=== PATIENT | male | born 1945 | race African-American/Black ===

== ENCOUNTER 2016-09-18 14:40 | Inpatient (IN) | payer MEDICARE, BC ==
[~2016-09-18] VITALS: Ht 182.9 cm; Wt 97.5 kg
[~2016-09-18 14:40] MED LIST: ALLO300T2 PO; AZOPT OP; BRIM5DRO OP; LATA2.5D2 EACHEYE; METF-516 PO; SIMV40TA5 PO
[2016-09-18] MEDS ORDERED: ASPIRIN 81MG TABLET PO STA (15:03)
[2016-09-18] MEDS ORDERED: SODIUM CHLORIDE 0.9% 500 ML IV ONE (15:03)
[2016-09-18 15:45] LABS: BASOPHILS % 0.3 % (0.0-2.0); EOSINOPHILS % 0.7 % (0.0-5.0); HEMATOCRIT. 35.5 % (42.0-52.0); HEMOGLOBIN. 11.7 g/dL (14.0-18.0); LYMPHOCYTES % 19.2 % (20.0-50.0); MEAN CORPUSCULAR HEMOGLOBIN 29.6 pg (28.0-32.0); MEAN CORPUSCULAR HGB CONC 32.9 g/dL (31.0-37.0); MEAN CORPUSCULAR VOLUME 90.1 fL (80.0-94.0); MEAN PLATELET VOLUME 7.9 fl (7.4-10.4); MONOCYTES % 9.4 % (2.0-8.0); NEUTROPHILS % 70.4 % (40.0-76.0); PLATELET 324 x1000/uL (130-400); RED BLOOD CELL COUNT 3.94 mill/uL (4.7-6.1); RED CELL DISTRIBUTION WIDTH 13.2 % (11.6-14.6); WHITE BLOOD COUNT 6.8 x1000/uL (4.5-11.0)
[2016-09-18 15:51] LABS: ALBUMIN 3.3 g/dL (3.4-5.0); ANION GAP 13; CALCIUM 8.9 mg/dL (8.5-10.1); CARBON DIOXIDE 28 mEq/L (21-32); CHLORIDE 103 mEq/L (98-107); INDEX HEMOLYSI 1 (1-3); INDEX ICTERIC 1 (1-4); INDEX LIPEMIC 1 (1-3); INR 1.1; LIPASE 148 IU/L (73-393); PROTHROMBIN TIME 11.2 sec; UREA NITROGEN BLOOD 11 mg/dL (7-21)
[2016-09-18 15:59] LABS: ALANINE AMINOTRANSFERASE 21 IU/L (13-61); CREATINE KINASE 132 IU/L (39-308); NT PRO B-TYPE NATRIURETIC PEP 50 pg/mL (5-125); TROPONIN I < 0.02 ng/mL (0.00-0.04); eGFR > 60 mL/min (>60)
[2016-09-18 16:04] LABS: THYROID STIMULATING HORMONE 0.92 uIU/mL (0.36-3.74)
[2016-09-18 16:50] LABS: CLARITY URINE CLOUDY (CLEAR); COLOR URINE YELLOW (YELLOW); GLUCOSE URINE NEGATIVE (NEGATIVE); KETONES URINE NEGATIVE (NEGATIVE); LEUKOCYTE ESTERASE URINE 3+ (NEGATIVE); NITRITE URINE POSITIVE (NEGATIVE); OCCULT BLOOD URINE 2+ (NEGATIVE); PROTEIN URINE TRACE (NEGATIVE); SPECIFIC GRAVITY URINE 1.012 (1.005-1.030)
[2016-09-18 17:07] LABS: BACTERIA URINE 2+; SQUAMOUS EPITHELIAL CELL URINE RARE /lpf (RARE/1+)
[2016-09-18 17:10] LABS: RBC URINE 15-25 /hpf (0-2); WBC URINE 50-100 /hpf (0-2)
[2016-09-18] MEDS ORDERED: ONDANSETRON HCL 4MG/2ML VIAL IV PRN (18:30)
[2016-09-18] MEDS ORDERED: MORPHINE SULFATE 4 MG/ML CPJ (NOT FOR IM USE) IV PRN (18:30)
[2016-09-18] MEDS ORDERED: CLONIDINE 0.1MG TABLET PO PRN (18:30)
[2016-09-18 18:40] VITALS: BP 124/76
[2016-09-18] MEDS ORDERED: ATENOLOL 25MG TABLET PO ONE (21:00)
[2016-09-18] MEDS ORDERED: DORZ10DR7 EACHEYE (21:46)
[2016-09-18] MEDS ORDERED: TRIA1TAB5 PO (21:46)
[2016-09-18] MEDS ORDERED: B12 PO (21:46)
[2016-09-18] MEDS ORDERED: POTA10CA42 PO (21:46)
[2016-09-18] MEDS ORDERED: CHOL50003 PO (21:46)
[2016-09-18 23:22] LABS: CREATINE KINASE 119 IU/L (39-308); CREATINE KINASE MB FRACTION 1.1 ng/mL (0.5-3.6); INDEX HEMOLYSI 1 (1-3); TROPONIN I < 0.02 ng/mL (0.00-0.04)
[2016-09-19] VITALS: BP 98/66
[2016-09-19 04:00] VITALS: BP 105/60
[2016-09-19 06:52] LABS: CREATINE KINASE 109 IU/L (39-308); CREATINE KINASE MB FRACTION 1.2 ng/mL (0.5-3.6); HDL CHOLESTEROL 36 mg/dL (40-59); INDEX HEMOLYSI 1 (1-3); INDEX ICTERIC 1 (1-4); INDEX LIPEMIC 1 (1-3); LDL CHOLESTEROL 65 mg/dL (5-100); TRIGLYCERIDE 69 mg/dL (0-150); TROPONIN I < 0.02 ng/mL (0.00-0.04)
[2016-09-19 08:00] VITALS: BP 125/80
[2016-09-19] MEDS: ASPIRIN 81MG TABLET PO SCH (09:26)
[2016-09-19] MEDS: PANTOPRAZOLE SODIUM 40 MG/VIAL IV SCH (09:26)
[2016-09-19] MEDS: AMLODIPINE 10MG TABLET PO SCH (09:26)
[2016-09-19 12:30] VITALS: BP 136/74
[2016-09-19 16:00] VITALS: BP 129/79
[2016-09-19] MEDS ORDERED: LEVOFLOXACIN 500MG PREMIX 100 ML IV SCH (16:00)
[2016-09-20] VITALS: BP 136/82
[2016-09-20 04:00] VITALS: BP 130/71
[2016-09-20 08:00] VITALS: BP 122/76
[2016-09-20] MEDS: PANTOPRAZOLE SODIUM 40 MG/VIAL IV SCH (08:26)
[2016-09-20] MEDS: ASPIRIN 81MG TABLET PO SCH (08:27)
[2016-09-20] MEDS: AMLODIPINE 10MG TABLET PO SCH (08:27)
[2016-09-20 12:00] VITALS: BP 113/69
[2016-09-20 15:06] LABS: BASOPHILS % 0.3 % (0.0-2.0); EOSINOPHILS % 1.4 % (0.0-5.0); HEMATOCRIT. 35.6 % (42.0-52.0); HEMOGLOBIN. 11.8 g/dL (14.0-18.0); LYMPHOCYTES % 19.9 % (20.0-50.0); MEAN CORPUSCULAR HEMOGLOBIN 30.1 pg (28.0-32.0); MEAN CORPUSCULAR HGB CONC 33.1 g/dL (31.0-37.0); MEAN CORPUSCULAR VOLUME 90.7 fL (80.0-94.0); MEAN PLATELET VOLUME 8.2 fl (7.4-10.4); MONOCYTES % 7.9 % (2.0-8.0); NEUTROPHILS % 70.5 % (40.0-76.0); PLATELET 309 x1000/uL (130-400); RED BLOOD CELL COUNT 3.93 mill/uL (4.7-6.1); RED CELL DISTRIBUTION WIDTH 13.4 % (11.6-14.6); WHITE BLOOD COUNT 5.9 x1000/uL (4.5-11.0)
[2016-09-20 16:00] VITALS: BP 103/69
[2016-09-20 16:06] LABS: ANION GAP 13; CALCIUM 8.7 mg/dL (8.5-10.1); CARBON DIOXIDE 27 mEq/L (21-32); CHLORIDE 103 mEq/L (98-107); INDEX HEMOLYSI 1 (1-3); INDEX ICTERIC 1 (1-4); INDEX LIPEMIC 1 (1-3); TROPONIN I < 0.02 ng/mL (0.00-0.04); UREA NITROGEN BLOOD 11 mg/dL (7-21); eGFR > 60 mL/min (>60)
[2016-09-20 16:39] VITALS: BP 130/78
[2016-09-21] MEDS ORDERED: FAMOTIDINE 20MG TABLET PO SCH (09:00)
[2016-09-21] MEDS ORDERED: LEVOFLOXACIN 500MG TABLET PO SCH (11:00)
== END 2016-09-20 17:15 | disposition home or self-care (01) | DRG 206 ==
LOC: ER 17:09 → 5WST 17:10 → ER 17:11
PROVIDERS: ADMIT Hospitalist; ATTEND Hospitalist
DX: M94.0 Chondrocostal junction syndrome [Tietze] (principal); N39.0 Urinary tract infection, site not specified; R13.10 Dysphagia, unspecified; Z79.84 Long term (current) use of oral hypoglycemic drugs; M10.9 Gout, unspecified; I10 Essential (primary) hypertension; E78.5 Hyperlipidemia, unspecified; E78.00 Pure hypercholesterolemia, unspecified; E11.9 Type 2 diabetes mellitus without complications; D64.9 Anemia, unspecified; Z82.49 Family history of ischemic heart disease and other diseases of the circulatory system; Z85.46 Personal history of malignant neoplasm of prostate; Z87.442 Personal history of urinary calculi; Z90.79 Acquired absence of other genital organ(s)
CPT/HCPCS: 36415; 71010; 80048; 80053; 80061; 81001; 82550; 82553; 83690; 83880; 84443; 84484; 85025; 85610; 85730; 87077; 87086; 87186; 92610; 93005; 93306; 99285; C9113; J1956; J7030; J7040

== ENCOUNTER → 2016-09-29 | Day surgery (SDC) | payer MEDICARE ==
[~2016-09-29] VITALS: Ht 182.9 cm; Wt 97.5 kg
[~2016-09-29] MED LIST changes: +ACETAMINOPHEN 325MG TABLET PO PRN; -AZOPT OP; +B12 PO; +CHOL50003 PO; +DORZ10DR7 EACHEYE; +NICARDIPINE 100MCG/ML 10ML VIAL (CATH LAB) IV ONE; +NITROGLYCERIN 50MCG/ML 10ML VIAL (CATH LAB) IV ONE; +ONDANSETRON HCL 4MG TABLET PO SCH; +ONDANSETRON HCL 4MG/2ML VIAL IM ONE; +POTA10CA42 PO; +TRIA1TAB5 PO
[2016-09-29 13:09] VITALS: BP 136/81
== END | disposition home or self-care (01) ==
LOC: CCL 08:09
PROVIDERS: ATTEND Specialist
DX: I25.10 Atherosclerotic heart disease of native coronary artery without angina pectoris (principal); E11.9 Type 2 diabetes mellitus without complications; E78.00 Pure hypercholesterolemia, unspecified; I10 Essential (primary) hypertension; C61 Malignant neoplasm of prostate; D64.9 Anemia, unspecified; M19.90 Unspecified osteoarthritis, unspecified site; I21.3 ST elevation (STEMI) myocardial infarction of unspecified site; E87.6 Hypokalemia
CPT/HCPCS: 93458; C1769; C1893; J1170; J1644; J2250; J3010; J3490; Q0162; Q9967

== ENCOUNTER → 2017-04-20 | Outpatient (CLI) | payer MEDICARE ==
[~2017-04-20] MED LIST changes: -ACETAMINOPHEN 325MG TABLET PO PRN; -NICARDIPINE 100MCG/ML 10ML VIAL (CATH LAB) IV ONE; -NITROGLYCERIN 50MCG/ML 10ML VIAL (CATH LAB) IV ONE; -ONDANSETRON HCL 4MG TABLET PO SCH; -ONDANSETRON HCL 4MG/2ML VIAL IM ONE
== END | disposition home or self-care (01) ==
LOC: RAD 10:48
DX: N28.89 Other specified disorders of kidney and ureter (principal)
CPT/HCPCS: 74000

== ENCOUNTER → 2017-06-03 | Outpatient (CLI) | payer MEDICARE, OTHER | END | disposition home or self-care (01) | LOC: RAD 12:54 | PROVIDERS: ATTEND Urology | DX: M25.78 Osteophyte, vertebrae (principal); R07.89 Other chest pain | CPT/HCPCS: 71010 ==

== ENCOUNTER 2017-06-12 11:41 | Emergency (ER) | payer MEDICARE, OTHER | END 2017-06-12 14:23 | disposition left against medical advice (07) | LOC: ER 13:27 | DX: Z53.21 Procedure and treatment not carried out due to patient leaving prior to being seen by health care provider (principal) ==

== ENCOUNTER 2018-07-11 17:34 | Inpatient (IN) | payer MEDICARE, OTHER ==
[~2018-07-11] VITALS: Ht 182.9 cm; Wt 97.5 kg
[~2018-07-11 17:34] MED LIST changes: -DORZ10DR7 EACHEYE; +DORZ10DR8 EACHEYE
[2018-07-11] MEDS ORDERED: TETANUS, DIPHTHERIA, PERTUSSIS VAC/PF 0.5ML (>7YR OLD) IM ONE (20:30)
[2018-07-11] MEDS ORDERED: HYDROCODONE/ACETAMINOPHEN 5/325MG TABLET PO ONE (21:30)
[2018-07-11] MEDS ORDERED: VANCOMYCIN 750 MG PREMIX 150 ML IV SCH (22:00)
[2018-07-11] MEDS ORDERED: PIPERACILLIN/TAZ 3.375G PREMIX 50 ML IV ONE (22:00)
[2018-07-12] MEDS ORDERED: MORPHINE SULFATE 4 MG/ML CPJ (NOT FOR IM USE) IV STA (00:43)
[2018-07-12] MEDS ORDERED: SODIUM CHLORIDE 0.9% 500 ML IV ONE (00:43)
[2018-07-12] MEDS ORDERED: ONDANSETRON HCL 4MG/2ML INJ IV STA (00:43)
[2018-07-12 12:36] VITALS: BP 133/71
[2018-07-12] MEDS ORDERED: CLONIDINE 0.1MG TABLET PO PRN (14:15)
[2018-07-12] MEDS ORDERED: DOCUSATE SODIUM 100MG CAPSULE PO PRN (14:15)
[2018-07-12] MEDS ORDERED: HYDROMORPHONE HCL/PF 2MG/ML CPJ IV PRN (14:15)
[2018-07-12] MEDS ORDERED: GUAIFENESIN 200MG/10ML SUGAR FREE UDC PO PRN (14:15)
[2018-07-12] MEDS ORDERED: ONDANSETRON HCL 4MG/2ML INJ IV PRN (14:15)
[2018-07-12] MEDS ORDERED: MAGNESIUM/ALUMINUM HYDROXIDE/SIMETHICONE 30ML UDC PO PRN (14:15)
[2018-07-12] MEDS ORDERED: ACETAMINOPHEN 325MG TABLET PO PRN (14:15)
[2018-07-12] MEDS ORDERED: PIPERACILLIN/TAZ 3.375G PREMIX 50 ML IV SCH ×2 (14:30→22:00)
[2018-07-12 16:00] VITALS: BP 136/75
[2018-07-12] MEDS ORDERED: VANCOMYCIN 1500MG in DEXTROSE 5% WATER 250ML IV SCH (16:00)
[2018-07-12 16:23] LABS: BASOPHILS % 0.4 % (0.0-2.0); EOSINOPHILS % 2.6 % (0.0-5.0); HEMATOCRIT. 39.4 % (42.0-52.0); HEMOGLOBIN. 12.9 g/dL (14.0-18.0); LYMPHOCYTES % 23.9 % (20.0-50.0); MEAN CORPUSCULAR HEMOGLOBIN 30.3 pg (28.0-32.0); MEAN CORPUSCULAR VOLUME 92.4 fL (80.0-94.0); NEUTROPHILS % 61.1 % (40.0-76.0); PLATELET 183 x1000/uL (130-400); RED BLOOD CELL COUNT 4.26 mill/uL (4.7-6.1); RED CELL DISTRIBUTION WIDTH 13.5 % (11.6-14.6)
[2018-07-12 16:31] LABS: CHLORIDE 107 mEq/L (98-107)
[2018-07-12] MEDS: HYDROCODONE/ACETAMINOPHEN 5/325MG TABLET PO PRN ×2 (16:33→22:07)
[2018-07-12] MEDS ORDERED: DEXTROSE 50% WATER 50ML SYRINGE IV PRN (19:00)
[2018-07-12 20:00] VITALS: BP 122/70
[2018-07-12] MEDS ORDERED: BLOOD SUGAR DIAGNOSTIC STRIP TEST SCH (21:00)
[2018-07-12] MEDS ORDERED: INSULIN LISPRO 100 UNITS/ML SUBCUT SCH (21:00)
[2018-07-13] VITALS: BP 134/76
[2018-07-13] MEDS ORDERED: SODIUM CHLORIDE 0.9% 1,000 ML IV SCH (06:00)
[2018-07-13] MEDS ORDERED: VANCOMYCIN 1 G PREMIX 200 ML IV SCH (07:00)
== END 2018-07-13 06:39 | disposition left against medical advice (07) | DRG 563 ==
LOC: ER 17:34 → 7WST 07-12 11:03 → ENRESERV 07-12 11:39 → 7WST 07-12 12:52
PROVIDERS: ADMIT Hospitalist; ATTEND Hospitalist
DX: S92.911B Unspecified fracture of right toe(s), initial encounter for open fracture (principal); T79.A21A Traumatic compartment syndrome of right lower extremity, initial encounter; I10 Essential (primary) hypertension; E11.9 Type 2 diabetes mellitus without complications; S80.212A Abrasion, left knee, initial encounter; H40.9 Unspecified glaucoma; E78.00 Pure hypercholesterolemia, unspecified; M10.9 Gout, unspecified; E78.5 Hyperlipidemia, unspecified; S00.31XA Abrasion of nose, initial encounter; W23.0XXA Caught, crushed, jammed, or pinched between moving objects, initial encounter; S00.03XA Contusion of scalp, initial encounter; Z87.442 Personal history of urinary calculi; Y93.89 Activity, other specified; Y92.89 Other specified places as the place of occurrence of the external cause; Y99.8 Other external cause status; Z79.899 Other long term (current) drug therapy; Z79.84 Long term (current) use of oral hypoglycemic drugs
CPT/HCPCS: 36415; 70486; 73630; 80048; 82962; 90715; 93970; 96374; 99285; J1815; J2270; J2405; J2543; J3370; J7030; J7050; J7060

== ENCOUNTER 2021-01-23 19:00 | Emergency (ER) | payer MEDICARE, OTHER ==
[~2021-01-23] VITALS: Ht 182.9 cm; Wt 93.0 kg
[~2021-01-23 19:00] MED LIST changes: -BRIM5DRO OP; +LATA2.5D14 EACHEYE; -LATA2.5D2 EACHEYE; -METF-516 PO; +METF-818 PO; +SIMV-46 PO; -SIMV40TA5 PO
[2021-01-23] MEDS ORDERED: IBUPROFEN 600MG TABLET PO STA (20:50)
[2021-01-23] MEDS ORDERED: IBUP-2029 MT (21:39)
[2021-01-23 21:40] VITALS: BP 131/81
== END 2021-01-23 22:01 | disposition home or self-care (01) ==
LOC: ER 19:00
DX: S09.90XA Unspecified injury of head, initial encounter (principal); I10 Essential (primary) hypertension; E78.00 Pure hypercholesterolemia, unspecified; E11.9 Type 2 diabetes mellitus without complications; Z79.899 Other long term (current) drug therapy; Z98.890 Other specified postprocedural states; W10.9XXA Fall (on) (from) unspecified stairs and steps, initial encounter; Y93.89 Activity, other specified; Y92.89 Other specified places as the place of occurrence of the external cause; Y99.8 Other external cause status
CPT/HCPCS: 99284

== ENCOUNTER 2021-05-20 20:37 | Emergency (ER) | payer MEDICARE, OTHER ==
[~2021-05-20] VITALS: Ht 182.9 cm; Wt 93.0 kg
[~2021-05-20 20:37] MED LIST changes: +IBUP-2029 MT
[2021-05-21 00:29] VITALS: BP 145/76
== END 2021-05-21 00:53 | disposition home or self-care (01) ==
LOC: ER 20:37
DX: S09.8XXA Other specified injuries of head, initial encounter (principal); X58.XXXA Exposure to other specified factors, initial encounter; Y93.89 Activity, other specified; Y92.89 Other specified places as the place of occurrence of the external cause; Y99.8 Other external cause status; E11.9 Type 2 diabetes mellitus without complications; H40.9 Unspecified glaucoma; R51.9 Headache, unspecified; Z79.899 Other long term (current) drug therapy
CPT/HCPCS: 99284

== ENCOUNTER 2021-07-02 17:34 | Emergency (ER) | payer MEDICARE ==
[~2021-07-02] VITALS: Ht 182.9 cm; Wt 92.0 kg
[2021-07-02] MEDS ORDERED: SODIUM CHLORIDE 0.9% 250 ML IV ONE (21:30)
[2021-07-02 21:32] LABS: BASOPHILS % 0.3 % (0.0-2.0); EOSINOPHILS % 2.8 % (0.0-5.0); HEMATOCRIT. 38.8 % (42.0-52.0); HEMOGLOBIN. 12.9 g/dL (14.0-18.0); LYMPHOCYTES % 30.2 % (20.0-50.0); MEAN CORPUSCULAR HEMOGLOBIN 30.5 pg (28.0-32.0); MEAN CORPUSCULAR VOLUME 91.8 fL (80.0-94.0); MEAN PLATELET VOLUME 8.3 fl (7.4-10.4); MONOCYTES % 12.4 % (2.0-8.0); NEUTROPHILS % 54.3 % (40.0-76.0); PLATELET 244 x1000/uL (130-400); RED BLOOD CELL COUNT 4.22 mill/uL (4.7-6.1); RED CELL DISTRIBUTION WIDTH 13.7 % (11.6-14.6)
[2021-07-02 21:44] LABS: CHLORIDE 105 mEq/L (98-107)
[2021-07-02 21:48] LABS: ETHANOL BLOOD < 10 mg/dL
[2021-07-02 23:18] VITALS: BP 142/75
== END 2021-07-02 23:29 | disposition home or self-care (01) ==
LOC: ER 17:34 → CANBEDREQ 07-03 04:38
DX: R51.9 Headache, unspecified (principal); E11.9 Type 2 diabetes mellitus without complications; H40.9 Unspecified glaucoma; W01.0XXA Fall on same level from slipping, tripping and stumbling without subsequent striking against object, initial encounter; Y93.9 Activity, unspecified; Y92.9 Unspecified place or not applicable; Z85.46 Personal history of malignant neoplasm of prostate; Z98.890 Other specified postprocedural states
CPT/HCPCS: 36415; 70450; 71045; 80053; 80320; 83690; 83880; 84484; 85025; 96360; 96361; 99285; J7050; G0480

== ENCOUNTER 2021-12-01 20:14 | Emergency (ER) | payer MEDICARE ==
[~2021-12-01] VITALS: Ht 182.9 cm; Wt 89.3 kg
[2021-12-01 20:24] VITALS: BP 113/67
[2021-12-01] MEDS ORDERED: NIRM1TAB PO (20:45)
== END 2021-12-01 21:20 | disposition home or self-care (01) ==
LOC: ER 20:14
DX: U07.1 COVID-19 (principal); B34.9 Viral infection, unspecified; M25.522 Pain in left elbow; I10 Essential (primary) hypertension; E11.9 Type 2 diabetes mellitus without complications; I49.9 Cardiac arrhythmia, unspecified; Z98.890 Other specified postprocedural states; Z79.899 Other long term (current) drug therapy
CPT/HCPCS: 93005; 99283